=== PATIENT | male | born 1960 | race Caucasian/White ===

== ENCOUNTER 2021-01-14 18:39 | Inpatient (IN) | payer OTHER, BC ==
[2021-01-14 19:01] LABS: #Basophils 0.1 thou/uL (0.0-0.2); #Eosinphils 0.3 thou/uL (0.0-0.7); #Lymphocytes 2.8 thou/uL (1.20-3.40); #Monocytes 1.8 thou/uL (0.11-0.59); #Neutrophils 11.3 thou/uL (1.40-6.50); %Basophils 0.5 % (0.0-1.0); %Eosinophils 1.7 % (0.0-10.0); %Lymphocytes 17.2 % (21.0-51.0); %Monocytes 11.2 % (0.0-10.0); %Neutrophils 69.5 % (42.0-75.0); Hemoglobin 17.2 g/dL (14.0-18.0); Mean Corpuscular HGB CONC 34.1 g/dL (32.0-36.0); Mean Corpuscular Hemoglobin 28.8 pg (27.0-31.0); Mean Corpuscular Volume 84.5 fL (78.0-98.0); Mean Platelet Volume 6.9 fL (7.4-10.4); Platelet Count 260 thou/uL (130-400); RBC Distribution Width 11.7 % (11.5-14.5); Red Blood Cell (RBC) Count 5.96 mill/uL (4.70-6.10); White Blood Cell (WBC) Count 16.2 thou/uL (4.8-10.8)
[2021-01-14 19:12] LABS: ALT (SGPT) 39 U/L (8-55); AST (SGOT) 48 U/L (5-34); Albumin 4.5 g/dL (3.5-5.0); Alkaline Phosphatase 96 U/L (40-110); Anion Gap 17 mmol/L (10-20); BUN (Urea Nitrogen) 23 mg/dL (8.4-25.7); Bilirubin, Total 0.7 mg/dL (0.2-1.2); CK (CPK) 284 U/L (30-200); Calc. Creatinine Clearance 0 mL/min (70-130); Calcium 9.8 mg/dL (7.8-10.44); Carbon Dioxide 23 mmol/L (22-29); Chloride 101 mmol/L (98-107); Globulin 2.8 g/dL (2.4-3.5); Glucose 245 mg/dL (70-105); INR-International Normal Ratio 0.9; Lipase 64 U/L (8-78); PTT 24.5 sec (22.9-36.1); Potassium 4.6 mmol/L (3.5-5.1); Protein, Total 7.3 g/dL (6.0-8.3); Prothrombin Time 12.3 sec (12.0-14.7); Sodium 136 mmol/L (136-145)
[2021-01-14] MEDS ORDERED: Morphine 4 MG/ML VIAL ONE (20:04)
[2021-01-14] MEDS ORDERED: Ondansetron PF 4 MG/2 ML Vial ONE (20:04)
[2021-01-14] MEDS ORDERED: Ketamine 50 MG/ML (10ML VIAL) ONE (20:36)
[2021-01-14] MEDS ORDERED: Aspirin Chewable 81 MG TAB ONE (21:29)
[2021-01-14] MEDS ORDERED: Ketorolac Tromethamine 30 MG/ML VIAL ONE (21:29)
[2021-01-14] MEDS ORDERED: hydrALAZINE 20 MG/ML VIAL SLOW IVP PRN (21:49)
[2021-01-14] MEDS ORDERED: Insulin Regular 300 UNITS/3 ML VIAL SC PRN (21:49)
[2021-01-14] MEDS ORDERED: Dextrose 50% Abboject 50 ML SYRINGE SLOW IVP PRN (21:49)
[2021-01-14] MEDS ORDERED: Dextrose 5% in Water 1,000 ML IV PRN (21:49)
[2021-01-14] MEDS ORDERED: TETANUS AND DIPHTHERIA TOX/PF 0.5 ML DISP.SYRIN IM ONE (21:49)
[2021-01-14] MEDS ORDERED: Ondansetron PF 4 MG/2 ML Vial IVP PRN (21:49)
[2021-01-14] MEDS ORDERED: Cyclobenzaprine 10 MG TAB PO PRN (21:54)
[2021-01-14] MEDS ORDERED: traMADol HCl 50 MG TAB PO PRN (21:54)
[2021-01-14] MEDS ORDERED: Morphine 4 MG/ML VIAL SLOW IVP PRN (22:34)
[2021-01-14] MEDS ORDERED: traMADol HCl 50 MG TAB ONE (23:45)
[2021-01-14] MEDS ORDERED: Boostrix 0.5 ML (Tdap) VIAL ONE ×2 (23:45→23:56)
[2021-01-14] MEDS ORDERED: Acetaminophen 500 MG TAB ONE (23:45)
[2021-01-15] MEDS: Acetaminophen 500 MG TAB PO SCH ×5 (00:02→23:37)
[2021-01-15] MEDS: traMADol HCl 50 MG TAB PO SCH ×5 (00:19→23:37)
[2021-01-15] MEDS ORDERED: HYDROcodone/Acetaminophen 10/325 mg Tablet ONE (03:58)
[2021-01-15] MEDS: HYDROcodone/Acetaminophen 10/325 mg Tablet PO PRN ×2 (04:05→19:55)
[2021-01-15] MEDS ORDERED: Famotidine 20 MG TAB ONE (04:12)
[2021-01-15] MEDS: Sodium Chloride 0.9% 1,000 ML IV SCH ×3 (04:19→20:02)
[2021-01-15] MEDS: Famotidine 20 MG TAB PO SCH ×2 (04:20→20:03)
[2021-01-15 04:42] LABS: SARS-CoV-2 PCR by NAA Not Detected (NotDetected)
[2021-01-15 07:35] LABS: Phosphorus 4.6 mg/dL (2.3-4.7)
[2021-01-15 07:38] LABS: #Lymphocytes 1.9 thou/uL (1.20-3.40); #Monocytes 2.1 thou/uL (0.11-0.59); #Neutrophils 10.7 thou/uL (1.40-6.50); %Basophils 0.3 % (0.0-1.0); %Eosinophils 0.1 % (0.0-10.0); %Monocytes 14.4 % (0.0-10.0); %Neutrophils 72.2 % (42.0-75.0); Anion Gap 14 mmol/L (10-20); BUN (Urea Nitrogen) 21 mg/dL (8.4-25.7); Calc. Creatinine Clearance 83 mL/min (70-130); Calcium 9.2 mg/dL (7.8-10.44); Carbon Dioxide 23 mmol/L (22-29); Chloride 105 mmol/L (98-107); Glucose 173 mg/dL (70-105); Hemoglobin 16.3 g/dL (14.0-18.0); Magnesium 2.2 mg/dL (1.6-2.6); Mean Corpuscular HGB CONC 32.9 g/dL (32.0-36.0); Mean Corpuscular Volume 85.2 fL (78.0-98.0); Mean Platelet Volume 6.8 fL (7.4-10.4); Platelet Count 224 thou/uL (130-400); RBC Distribution Width 11.9 % (11.5-14.5); Red Blood Cell (RBC) Count 5.83 mill/uL (4.70-6.10); Sodium 138 mmol/L (136-145); White Blood Cell (WBC) Count 14.8 thou/uL (4.8-10.8)
[2021-01-15] MEDS: Gabapentin 300 MG CAP PO SCH ×3 (14:02→20:03)
[2021-01-15] MEDS: Senokot S 8.6-50 MG TAB PO SCH ×2 (14:03→20:03)
[2021-01-15] MEDS: Polyethylene Glycol 3350 17 GM Packet PO SCH (14:03)
[2021-01-15] MEDS: Carvedilol 6.25 MG TAB PO SCH (19:55)
[2021-01-16] MEDS: HYDROcodone/Acetaminophen 10/325 mg Tablet PO PRN ×3 (03:37→21:02)
[2021-01-16] MEDS: Acetaminophen 500 MG TAB PO SCH ×5 (03:50→21:04)
[2021-01-16] MEDS: traMADol HCl 50 MG TAB PO SCH ×4 (05:32→23:31)
[2021-01-16] MEDS: Senokot S 8.6-50 MG TAB PO SCH ×2 (08:57→21:04)
[2021-01-16] MEDS: Famotidine 20 MG TAB PO SCH ×2 (08:57→21:01)
[2021-01-16] MEDS: Polyethylene Glycol 3350 17 GM Packet PO SCH (08:57)
[2021-01-16] MEDS: Gabapentin 300 MG CAP PO SCH ×3 (08:57→21:04)
[2021-01-16] MEDS: Carvedilol 6.25 MG TAB PO SCH ×2 (09:39→21:02)
[2021-01-16] MEDS: Sacubitril 49 MG/Valsartan 51 MG TABLET PO SCH (09:39)
[2021-01-16] MEDS ORDERED: Fentanyl 100 MCG/2 ML VIAL ONE ×2 (12:52→13:33)
[2021-01-16] MEDS ORDERED: Midazolam HCl 2 mg/2 ml Vial ONE ×2 (12:52→13:19)
[2021-01-16] MEDS ORDERED: Bupivacaine PF 0.5% 30 ML VIAL ONE ×2 (12:53)
[2021-01-16] MEDS ORDERED: Bupivacaine HCl 0.5%/Epinephrine 1:200,000/PF 30 ml Vial ONE (13:00)
[2021-01-16] MEDS ORDERED: Glycopyrrolate 0.2 MG/ML 5 ML SYRINGE ONE (14:03)
[2021-01-16] MEDS ORDERED: PHENYLEPHRINE-NS 100 MCG/ML 10 ML SYRINGE ONE (14:03)
[2021-01-16] MEDS ORDERED: Lidocaine 1% PF 5 ML VIAL ONE (14:03)
[2021-01-16] MEDS ORDERED: Ketorolac Tromethamine 30 MG/ML VIAL ONE (14:03)
[2021-01-16] MEDS ORDERED: ePHEDrine Sulfate 50 MG/10 ML VIAL ONE (14:03)
[2021-01-16] MEDS ORDERED: Dexamethasone 20 MG/5 ML VIAL ONE (14:03)
[2021-01-16] MEDS ORDERED: PROPOFOL 200 MG/20 ML VIAL ONE (14:03)
[2021-01-16] MEDS ORDERED: Rocuronium Bromide 10 MG/ML (10ML VIAL) ONE (14:03)
[2021-01-16] MEDS ORDERED: Ondansetron PF 4 MG/2 ML Vial ONE (14:03)
[2021-01-16] MEDS: Sodium Chloride 0.9% 1,000 ML IV SCH (14:24)
[2021-01-16] MEDS ORDERED: Ondansetron HCl/PF 4 MG/2 ML Vial IVP PRN (14:52)
[2021-01-16] MEDS ORDERED: Promethazine HCl 25 MG/ML VIAL IM PRN ×2 (14:52→16:30)
[2021-01-16] MEDS ORDERED: Promethazine HCl 25 MG/ML VIAL SLOW IVP PRN (14:52)
[2021-01-16] MEDS ORDERED: Fentanyl 100 MCG/2 ML VIAL IV PRN (16:17)
[2021-01-16] MEDS ORDERED: traMADol HCl 50 MG TAB PO PRN ×2 (16:30)
[2021-01-16] MEDS ORDERED: HYDROcodone/Acetaminophen 10/325 mg Tablet PO PRN (16:30)
[2021-01-16] MEDS ORDERED: Ropivacaine 0.2% 550 ML 550 ML NERVE BLCK SCH (16:30)
[2021-01-16] MEDS ORDERED: Zolpidem Tartrate 5 MG TAB PO PRN (16:30)
[2021-01-16] MEDS ORDERED: Ondansetron PF 4 MG/2 ML Vial IVP PRN (16:30)
[2021-01-16] MEDS ORDERED: Aspirin 325 mg Enteric Coated Tablet PO SCH (20:00)
[2021-01-16] MEDS: CEFAZOLIN 2 GM in Premix Bag 1 BAG IVPB SCH (21:10)
[2021-01-17 05:59] LABS: #Lymphocytes 1.6 thou/uL (1.20-3.40); #Neutrophils 9.9 thou/uL (1.40-6.50); %Basophils 0.1 % (0.0-1.0); %Eosinophils 0.1 % (0.0-10.0); %Lymphocytes 11.6 % (21.0-51.0); %Monocytes 14.9 % (0.0-10.0); %Neutrophils 73.3 % (42.0-75.0); Hemoglobin 14.9 g/dL (14.0-18.0); Mean Corpuscular HGB CONC 34.1 g/dL (32.0-36.0); Mean Corpuscular Hemoglobin 29.3 pg (27.0-31.0); Mean Corpuscular Volume 85.9 fL (78.0-98.0); Mean Platelet Volume 6.6 fL (7.4-10.4); Platelet Count 217 thou/uL (130-400); RBC Distribution Width 11.8 % (11.5-14.5); Red Blood Cell (RBC) Count 5.07 mill/uL (4.70-6.10); White Blood Cell (WBC) Count 13.4 thou/uL (4.8-10.8)
[2021-01-17] MEDS: HYDROcodone/Acetaminophen 10/325 mg Tablet PO PRN (06:06)
[2021-01-17] MEDS: Insulin Regular 300 UNITS/3 ML VIAL SC PRN ×2 (06:07→12:53)
[2021-01-17] MEDS: CEFAZOLIN 2 GM in Premix Bag 1 BAG IVPB SCH (06:08)
[2021-01-17 06:30] LABS: Anion Gap 14 mmol/L (10-20); BUN (Urea Nitrogen) 19 mg/dL (8.4-25.7); Calc. Creatinine Clearance 107 mL/min (70-130); Calcium 9.1 mg/dL (7.8-10.44); Carbon Dioxide 24 mmol/L (22-29); Chloride 103 mmol/L (98-107); Glucose 169 mg/dL (70-105); Magnesium 2.4 mg/dL (1.6-2.6); Phosphorus 2.7 mg/dL (2.3-4.7); Potassium 4.2 mmol/L (3.5-5.1); Sodium 137 mmol/L (136-145)
[2021-01-17] MEDS: Acetaminophen 500 MG TAB PO SCH ×4 (06:33→17:42)
[2021-01-17] MEDS: traMADol HCl 50 MG TAB PO SCH ×2 (06:33→12:37)
[2021-01-17] MEDS ORDERED: Aspirin 325 mg Enteric Coated Tablet PO SCH (09:00)
[2021-01-17] MEDS: Sacubitril 49 MG/Valsartan 51 MG TABLET PO SCH (09:40)
[2021-01-17] MEDS: Carvedilol 6.25 MG TAB PO SCH (09:42)
[2021-01-17] MEDS: Gabapentin 300 MG CAP PO SCH ×2 (09:43→15:59)
[2021-01-17] MEDS: Famotidine 20 MG TAB PO SCH (09:44)
[2021-01-17] MEDS: Senokot S 8.6-50 MG TAB PO SCH (09:44)
[2021-01-17] MEDS: Polyethylene Glycol 3350 17 GM Packet PO SCH (09:45)
[2021-01-17 12:09] VITALS: TEMP 98
[2021-01-17 17:43] VITALS: BP 124/74
== END 2021-01-17 17:55 | disposition home health service (06) | DRG 503 ==
LOC: ERS 18:39 → ERHOLD 21:54 → SURG A 01-15 17:06
PROVIDERS: ADMIT Specialist; ATTEND Specialist
PROC: 0QSLXZZ Reposition Right Tarsal, External Approach (ICD-10-PCS; principal; 2021-01-14)
PROC: 0QSL04Z Reposition Right Tarsal with Internal Fixation Device, Open Approach (ICD-10-PCS; 2021-01-16)
DX: S92.131A Displaced fracture of posterior process of right talus, initial encounter for closed fracture (principal); I77.74 Dissection of vertebral artery; S12.100A Unspecified displaced fracture of second cervical vertebra, initial encounter for closed fracture; S22.31XA Fracture of one rib, right side, initial encounter for closed fracture; S12.000A Unspecified displaced fracture of first cervical vertebra, initial encounter for closed fracture; N17.9 Acute kidney failure, unspecified; E11.9 Type 2 diabetes mellitus without complications; I50.9 Heart failure, unspecified; V49.40XA Driver injured in collision with unspecified motor vehicles in traffic accident, initial encounter; Z95.810 Presence of automatic (implantable) cardiac defibrillator; Z79.84 Long term (current) use of oral hypoglycemic drugs
CPT/HCPCS: 27840; 36415; 36416; 70450; 70498; 71045; 71260; 72125; 74177; 76000; 76377; 80048; 80053; 82550; 83690; 83735; 84100; 84484; 85025; 85610; 85730; 87635; 90714; 90715; 93005; 94760; 96374; 96375; 99152; A4306; G0390; J0690; J1100; J1815; J1885; J2250; J2270; J2405; J2704; J2795; J3010; S0020; U0003; U0005

== ENCOUNTER 2021-02-13 11:26 | Outpatient (CLI) | payer BC | END 2021-02-13 11:27 | disposition home or self-care (01) | LOC: MRI 11:26 | PROVIDERS: ATTEND Neurological Surgery | DX: S12.9XXA Fracture of neck, unspecified, initial encounter (principal) | CPT/HCPCS: 72141 ==

== ENCOUNTER 2021-03-14 09:38 | Outpatient (CLI) | payer BC | END 2021-03-14 09:39 | disposition home or self-care (01) | LOC: BICCT 09:38 | PROVIDERS: ATTEND Neurological Surgery | DX: S12.000K Unspecified displaced fracture of first cervical vertebra, subsequent encounter for fracture with nonunion (principal); S12.100K Unspecified displaced fracture of second cervical vertebra, subsequent encounter for fracture with nonunion | CPT/HCPCS: 72125 ==

== ENCOUNTER 2021-05-03 10:45 | Outpatient (CLI) | payer BC | END 2021-05-03 10:46 | disposition home or self-care (01) | LOC: BICCT 10:45 | PROVIDERS: ATTEND Neurological Surgery | DX: S12.000D Unspecified displaced fracture of first cervical vertebra, subsequent encounter for fracture with routine healing (principal); S12.100D Unspecified displaced fracture of second cervical vertebra, subsequent encounter for fracture with routine healing | CPT/HCPCS: 72125 ==

== ENCOUNTER 2021-10-22 08:52 | Outpatient (CLI) | payer BC | END 2021-10-22 08:53 | disposition home or self-care (01) | LOC: CT 08:52 | PROVIDERS: ATTEND Neurological Surgery | DX: S12.13 Unspecified traumatic spondylolisthesis of second cervical vertebra (principal); S02.113A Unspecified occipital condyle fracture, initial encounter for closed fracture; S12.000A Unspecified displaced fracture of first cervical vertebra, initial encounter for closed fracture; M47.812 Spondylosis without myelopathy or radiculopathy, cervical region | CPT/HCPCS: 72125 ==